=== PATIENT | male | born 1950 | race Caucasian/White ===

== ENCOUNTER 2017-08-21 20:19 | Inpatient (IN) | payer MEDICARE, MEDICAID ==
[2017-08-21 21:15] VITALS: BP 104/68
[2017-08-22] MEDS ORDERED: Maalox 30 mL Cup PO PRN (00:27)
[2017-08-22] MEDS ORDERED: Nicotine 14 mg/24 hr Tdm TD PRN (00:27)
[2017-08-22] MEDS ORDERED: Non-Formulary Item 1 EA (Albuterol Sulfate [Ventolin Hfa] 2 PUFF) IH PRN (05:52)
[2017-08-22] MEDS: INSULIN ASPART SLIDING SCALE 100 UNITS/ML UNIT SUBQ SCH ×3 (07:04→21:25)
[2017-08-22] MEDS ORDERED: Non-Formulary Item 1 EA (Fluticasone/Salmeterol [Advair 250-50 Diskus] 1 PUFF) INH SCH (09:00)
[2017-08-22] MEDS ORDERED: Aspirin 81mg Chewable Tab PO SCH (09:00)
[2017-08-22] MEDS ORDERED: TIOTROPIUM BROMIDE INH SCH (09:00)
[2017-08-22] MEDS ORDERED: NIFEdipine 30 mg ER Tab PO SCH (09:00)
[2017-08-22] MEDS: Albuterol Nebulizer 2.5mg/3mL HHN PRN ×2 (15:29→19:44)
[2017-08-22] MEDS: Hydrocodone/APAP 5mg/325mg Tab PO PRN (16:26)
[2017-08-22] MEDS: Aspirin 81mg Chewable Tab PO SCH (16:33)
[2017-08-22] MEDS ORDERED: INSULIN ASPART SLIDING SCALE 100 UNITS/ML UNIT SUBQ SCH (18:00)
[2017-08-23] MEDS: INSULIN ASPART SLIDING SCALE 100 UNITS/ML UNIT SUBQ SCH ×3 (07:03→21:29)
[2017-08-23] MEDS: Aspirin 81mg Chewable Tab PO SCH (08:31)
[2017-08-23 08:53] LABS: % BASOPHILS 0.2 % (0.0-2.0); % EOSINOPHILS 0.4 % (0.0-5.0); % NEUTROPHILS 83.4 % (40.0-80.0); HEMATOCRIT 41.4 % (41.0-60); HEMOGLOBIN 13.7 gm/dL (12-16); LYMPHOCYTE ABSOLUTE 0.9 Th/cmm (1.5-3.0); MEAN CELL VOLUME 90.1 fl (80-99); MEAN CORPUSCULAR HEMOGLOBIN 29.7 pg (27.0-31.0); MEAN PLATELET VOLUME 7.7 fl; MONOCYTE ABSOLUTE 0.9 Th/cmm (0.3-1.0); PLATELET COUNT 260 Th/cmm (150-400); RED BLOOD COUNT 4.59 Mil/cmm (3.80-5.80); RED CELL DISTRIBUTION WIDTH 16.7 % (11.5-20.0); WHITE BLOOD COUNT 10.8 Th/cmm (4.8-10.8)
[2017-08-23 09:10] LABS: ANION GAP 7.6 (7.0-16.0); BUN - UREA NITROGEN 37 mg/dL (7-25); CALCIUM SERUM 9.3 mg/dL (8.6-10.3); CARBON DIOXIDE 34.7 mEq/L (21.0-31.0); CHLORIDE 103 mEq/L (98-107); CREATININE - SERUM 1.2 mg/dL (0.7-1.3); GFR AFRICAN-AMERICAN > 60.0 ml/min (>90); GFR NON AFRICAN-AMERICAN > 60.0 ml/min; GLUCOSE 176 mg/dL (70-105); POTASSIUM SERUM 4.3 mEq/L (3.5-5.1); SODIUM SERUM 141 mEq/L (136-145)
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
[2017-08-23] MEDS: Albuterol Nebulizer 2.5mg/3mL HHN PRN ×2 (09:57→14:14)
[2017-08-23] MEDS: Hydrocodone/APAP 5mg/325mg Tab PO PRN ×2 (13:16→21:05)
[2017-08-24] MEDS: Albuterol Nebulizer 2.5mg/3mL HHN PRN ×3 (01:21→17:53)
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
[2017-08-24] MEDS: INSULIN ASPART SLIDING SCALE 100 UNITS/ML UNIT SUBQ SCH ×4 (06:51→20:41)
--- NOTE | 2017-08-24 07:26 | General Progress Note ---
Subjective - Review of Systems Service Date: 08/24/17 Subjective: Pt seen and eval. Has sig edema in LE, in spite of the lasix. Very sig amount of psychosis. Trying to get out of bed. No n,v,d or cp. No fevers or chills. Has LE pain due to edema. Objective - Results Result Diagrams: 08/23/17 08:35 08/23/17 08:35 Recent Labs: Laboratory Last Values WBC 10.8 Th/cmm (4.8-10.8) 08/23/17 08:35 RBC 4.59 Mil/cmm (3.80-5.80) 08/23/17 08:35 Hgb 13.7 gm/dL (12-16) 08/23/17 08:35 Hct 41.4 % (41.0-60) 08/23/17 08:35 MCV 90.1 fl (80-99) 08/23/17 08:35 MCH 29.7 pg (27.0-31.0) 08/23/17 08:35 MCHC Differential 33.0 pg (28.0-36.0) 08/23/17 08:35 RDW 16.7 % (11.5-20.0) 08/23/17 08:35 Plt Count 260 Th/cmm (150-400) 08/23/17 08:35 MPV 7.7 fl 08/23/17 08:35 Neutrophils % 83.4 % (40.0-80.0) H 08/23/17 08:35 Lymphocytes % 8.0 % (20.0-50.0) L 08/23/17 08:35 Monocytes % 8.0 % (2.0-10.0) 08/23/17 08:35 Eosinophils % 0.4 % (0.0-5.0) 08/23/17 08:35 Basophils % 0.2 % (0.0-2.0) 08/23/17 08:35 Sodium 141 mEq/L (136-145) 08/23/17 08:35 Potassium 4.3 mEq/L (3.5-5.1) 08/23/17 08:35 Chloride 103 mEq/L (98-107) 08/23/17 08:35 Carbon Dioxide 34.7 mEq/L (21.0-31.0) H 08/23/17 08:35 Anion Gap 7.6 (7.0-16.0) 08/23/17 08:35 BUN 37 mg/dL (7-25) H 08/23/17 08:35 Creatinine 1.2 mg/dL (0.7-1.3) 08/23/17 08:35 Est GFR ( Amer) > 60.0 ml/min (>90) 08/23/17 08:35 Est GFR (Non-Af Amer) > 60.0 ml/min 08/23/17 08:35 BUN/Creatinine Ratio 30.8 08/23/17 08:35 Glucose 176 mg/dL (70-105) H 08/23/17 08:35 POC Glucose 114 MG/DL (70 - 105) H 08/24/17 06:46 Hemoglobin A1c % 7.0 % (4.0-6.0) H 08/22/17 07:50 Calcium 9.3 mg/dL (8.6-10.3) 08/23/17 08:35 - Physical Exam Vitals and I&O: Vital Signs Temp 97.8 F 08/24/17 06:43 Pulse 80 08/24/17 06:43 Resp 20 08/24/17 06:43 BP 132/84 08/24/17 06:43 Pulse Ox 98 08/24/17 06:43 Intake & Output 08/23/17 08/24/17 08/24/17 18:59 06:59 18:59 Intake Total 1200 240 Balance 1200 240 Intake: Oral 1200 240 Other: # Voids 3 4 # Bowel Movements 1 0 Active Medications: Current Medications Acetaminophen (Tylenol) 650 mg PO Q4HR PRN PRN Reason: Mild Pain / Temp above 100 Stop: 10/20/17 20:40 Acetaminophen/Hydrocodone Bitart ([place] 5mg/325mg) 1 tab PO Q6HR PRN PRN Reason: pain Stop: 10/21/17 00:24 Last Admin: 08/23/17 21:05 Dose: 1 tab Al Hydrox/Mg Hydrox/Simethicone (Maalox) 30 ml PO Q8HR PRN PRN Reason: reflux Last Admin: 08/22/17 16:26 Dose: 30 ml Albuterol Sulfate (Albuterol 2.5mg/3ml Neb Ud) 2.5 mg HHN Q4HRT PRN PRN Reason: Shortness of Breath Stop: 10/21/17 14:15 Last Admin: 08/24/17 01:21 Dose: 2.5 mg Aspirin (Aspirin Chewable) 81 mg PO DAILY [facility] Stop: 10/21/17 08:59 Last Admin: 08/23/17 08:31 Dose: 81 mg Carvedilol (Coreg) 12.5 mg PO BID [facility] Stop: 10/21/17 08:59 Last Admin: 08/23/17 08:27 Dose: 12.5 mg Famotidine (Pepcid) 20 mg PO Q12HR PRN PRN Reason: GERD Stop: 10/21/17 00:24 Furosemide (Lasix) 40 mg PO DAILY [facility] Stop: 10/21/17 08:59 Last Admin: 08/23/17 08:29 Dose: 40 mg Hydralazine HCl (Apresoline) 10 mg PO QID PRN PRN Reason: for SBP >160 Stop: 10/21/17 00:24 Last Admin: 08/23/17 05:56 Dose: 10 mg Insulin Aspart (Novolog Insulin Sliding Scale) 0 units SUBQ ACHS ALEJANDRA PRN Reason: Protocol Stop: 10/21/17 07:29 Last Admin: 08/24/17 06:51 Dose: Not Given Lisinopril (Zestril) 2.5 mg PO DAILY [facility] Stop: 10/21/17 08:59 Last Admin: 08/23/17 08:29 Dose: 2.5 mg Loperamide HCl (Imodium) 2 mg PO Q4HR PRN PRN Reason: Diarrhea Stop: 10/21/17 00:26 Lorazepam (Ativan) 0.5 mg PO Q4HR PRN; Protocol PRN Reason: Anxiety Stop: 09/20/17 20:40 Last Admin: 08/23/17 23:04 Dose: 0.5 mg Metformin HCl (Glucophage) 500 mg PO BIDWM [facility] Stop: 10/21/17 07:59 Last Admin: 08/23/17 08:30 Dose: 500 mg Methocarbamol (Robaxin) 750 mg PO Q12HR PRN PRN Reason: muscle spasms Nicotine (Nicotine Transdermal System) 14 mg TD DAILY PRN PRN Reason: nicotine withdrawal symptoms Stop: 10/21/17 00:26 Olanzapine (Zyprexa) 5 mg PO HS ALEJANDRA PRN Reason: Protocol Stop: 10/21/17 20:59 Last Admin: 08/23/17 20:33 Dose: 5 mg Zolpidem Tartrate (Ambien) 5 mg PO HS PRN PRN Reason: Insomnia Stop: 10/20/17 20:40 Last Admin: 08/23/17 20:33 Dose: 5 mg General: Mild distress HEENT: Atraumatic, PERRLA Neck: Supple, JVD Cardiovascular: Regular rate, Normal S1, Normal S2 Lungs: Other (Has some congestion) Abdomen: Bowel sounds Assessment/Plan - Assessment Assessment: BL LE edema Unsteady gait DM Ordered cxr, BNP level and chem 7 as pt's edema is worse. FU on labs mentioned above. Elevate legs. Continue fsbs and riss. limit salt intake.
[2017-08-24] MEDS: Hydrocodone/APAP 5mg/325mg Tab PO PRN ×2 (08:29→16:13)
[2017-08-24] MEDS: Aspirin 81mg Chewable Tab PO SCH (08:30)
[2017-08-24 08:47] LABS: % BASOPHILS 0.8 % (0.0-2.0); % EOSINOPHILS 0.2 % (0.0-5.0); % LYMPHOCYTES 7.1 % (20.0-50.0); % MONOCYTES 5.9 % (2.0-10.0); BASOPHILE ABSOLUTE 0.1 Th/cumm (0-0.2); HEMOGLOBIN 14.8 gm/dL (12-16); MEAN CELL VOLUME 91.1 fl (80-99); MEAN CORPUSCULAR HEMOGLOBIN 29.4 pg (27.0-31.0); MEAN CORPUSCULAR HGB CONC 32.3 pg (28.0-36.0); MEAN PLATELET VOLUME 7.8 fl; MONOCYTE ABSOLUTE 0.8 Th/cmm (0.3-1.0); NEUTROPHILE ABSOLUTE 11.7 Th/cmm (1.8-8.0); PLATELET COUNT 262 Th/cmm (150-400); RED BLOOD COUNT 5.03 Mil/cmm (3.80-5.80); RED CELL DISTRIBUTION WIDTH 17.1 % (11.5-20.0)
[2017-08-24 08:57] LABS: WHITE BLOOD COUNT 13.6 Th/cmm (4.8-10.8)
[2017-08-24 08:58] LABS: HEMATOCRIT 45.8 % (41.0-60)
[2017-08-24 09:03] LABS: ANION GAP 10.5 (7.0-16.0); BUN - UREA NITROGEN 36 mg/dL (7-25); CALCIUM SERUM 9.4 mg/dL (8.6-10.3); CARBON DIOXIDE 32.4 mEq/L (21.0-31.0); CHLORIDE 100 mEq/L (98-107); CREATININE - SERUM 1.1 mg/dL (0.7-1.3); GFR AFRICAN-AMERICAN > 60.0 ml/min (>90); GFR NON AFRICAN-AMERICAN > 60.0 ml/min; GLUCOSE 209 mg/dL (70-105); POTASSIUM SERUM 3.9 mEq/L (3.5-5.1); SODIUM SERUM 139 mEq/L (136-145)
[2017-08-24] MEDS ORDERED: Haloperidol Lactate 5 mg/mL 1mL Vial IM ONE (11:31)
--- NOTE | 2017-08-25 04:39 | Progress Notes ---
DATE: 08/24/2017 The patient is currently in the hospital, upset, angry on a hold, very combative, needs medications, more psychotic at nighttime. The patient nonsensical, gets aggressive with ongoing psychotic agitation. The patient is sleeping this morning, very tired because he was not sleeping much last night. Staff asking for medication adjustments. ASSESSMENT: The patient remains symptomatic, still psychotic, still with ongoing psychotic agitation, aggressive behaviors, poor impulse control. PLAN: We will continue to monitor. Increase Zyprexa today. We will also add Depakote dosing. JOB# [id number]
[2017-08-25 07:07] LABS: % EOSINOPHILS 0.5 % (0.0-5.0); % LYMPHOCYTES 8.5 % (20.0-50.0); % MONOCYTES 8.8 % (2.0-10.0); % NEUTROPHILS 82.2 % (40.0-80.0); EOSINOPHILE ABSOLUTE 0.1 Th/cmm (0.1-0.4); HEMATOCRIT 46.3 % (41.0-60); LYMPHOCYTE ABSOLUTE 1.1 Th/cmm (1.5-3.0); MEAN CELL VOLUME 90.9 fl (80-99); MEAN CORPUSCULAR HEMOGLOBIN 29.4 pg (27.0-31.0); MEAN CORPUSCULAR HGB CONC 32.3 pg (28.0-36.0); MEAN PLATELET VOLUME 7.7 fl; MONOCYTE ABSOLUTE 1.1 Th/cmm (0.3-1.0); NEUTROPHILE ABSOLUTE 10.6 Th/cmm (1.8-8.0); PLATELET COUNT 261 Th/cmm (150-400); RED CELL DISTRIBUTION WIDTH 16.5 % (11.5-20.0)
[2017-08-25 07:08] LABS: WHITE BLOOD COUNT 12.9 Th/cmm (4.8-10.8)
[2017-08-25 07:29] LABS: ANION GAP 10.7 (7.0-16.0); BUN - UREA NITROGEN 39 mg/dL (7-25); CALCIUM SERUM 9.3 mg/dL (8.6-10.3); CARBON DIOXIDE 32.5 mEq/L (21.0-31.0); CHLORIDE 102 mEq/L (98-107); CREATININE - SERUM 1.2 mg/dL (0.7-1.3); GFR AFRICAN-AMERICAN > 60.0 ml/min (>90); GFR NON AFRICAN-AMERICAN > 60.0 ml/min; GLUCOSE 135 mg/dL (70-105); POTASSIUM SERUM 4.2 mEq/L (3.5-5.1); SODIUM SERUM 141 mEq/L (136-145)
[2017-08-25] MEDS: INSULIN ASPART SLIDING SCALE 100 UNITS/ML UNIT SUBQ SCH ×4 (08:00→20:28)
[2017-08-25] MEDS: Aspirin 81mg Chewable Tab PO SCH (09:08)
--- NOTE | 2017-08-25 10:20 | General Progress Note ---
Subjective - Review of Systems Service Date: 08/25/17 Subjective: Pt seen and eval. Has sig edema in LE. CXR still pending. Labs reviewed. BNP high. No sob at rest. Objective - Results Result Diagrams: 08/25/17 06:57 08/25/17 06:57 Recent Labs: Laboratory Last Values WBC 12.9 Th/cmm (4.8-10.8) H 08/25/17 06:57 RBC 5.10 Mil/cmm (3.80-5.80) 08/25/17 06:57 Hgb 15.0 gm/dL (12-16) 08/25/17 06:57 Hct 46.3 % (41.0-60) 08/25/17 06:57 MCV 90.9 fl (80-99) 08/25/17 06:57 MCH 29.4 pg (27.0-31.0) 08/25/17 06:57 MCHC Differential 32.3 pg (28.0-36.0) 08/25/17 06:57 RDW 16.5 % (11.5-20.0) 08/25/17 06:57 Plt Count 261 Th/cmm (150-400) 08/25/17 06:57 MPV 7.7 fl 08/25/17 06:57 Neutrophils % 82.2 % (40.0-80.0) H 08/25/17 06:57 Lymphocytes % 8.5 % (20.0-50.0) L 08/25/17 06:57 Monocytes % 8.8 % (2.0-10.0) 08/25/17 06:57 Eosinophils % 0.5 % (0.0-5.0) 08/25/17 06:57 Basophils % 0.0 % (0.0-2.0) 08/25/17 06:57 Sodium 141 mEq/L (136-145) 08/25/17 06:57 Potassium 4.2 mEq/L (3.5-5.1) 08/25/17 06:57 Chloride 102 mEq/L (98-107) 08/25/17 06:57 Carbon Dioxide 32.5 mEq/L (21.0-31.0) H 08/25/17 06:57 Anion Gap 10.7 (7.0-16.0) 08/25/17 06:57 BUN 39 mg/dL (7-25) H 08/25/17 06:57 Creatinine 1.2 mg/dL (0.7-1.3) 08/25/17 06:57 Est GFR ( Amer) > 60.0 ml/min (>90) 08/25/17 06:57 Est GFR (Non-Af Amer) > 60.0 ml/min 08/25/17 06:57 BUN/Creatinine Ratio 32.5 08/25/17 06:57 Glucose 135 mg/dL (70-105) H 08/25/17 06:57 POC Glucose 147 MG/DL (70 - 105) H 08/24/17 11:56 Hemoglobin A1c % 7.0 % (4.0-6.0) H 08/22/17 07:50 Calcium 9.3 mg/dL (8.6-10.3) 08/25/17 06:57 B-Natriuretic Peptide 1410.0 pg/mL (5.0-100.0) H 08/24/17 08:20 - Physical Exam Vitals and I&O: Vital Signs Temp 98.4 F 08/25/17 06:55 Pulse 96 08/25/17 09:07 Resp 18 08/25/17 06:55 BP 132/84 08/25/17 09:08 Pulse Ox 98 08/25/17 06:55 Intake & Output 08/24/17 08/25/17 08/25/17 18:59 06:59 18:59 Intake Total 1200 120 Balance 1200 120 Intake: Oral 1200 120 Other: # Voids 4 3 # Bowel Movements 1 Active Medications: Current Medications Acetaminophen (Tylenol) 650 mg PO Q4HR PRN PRN Reason: Mild Pain / Temp above 100 Stop: 10/20/17 20:40 Acetaminophen/Hydrocodone Bitart ([place] 5mg/325mg) 1 tab PO Q6HR PRN PRN Reason: pain Stop: 10/21/17 00:24 Last Admin: 08/24/17 16:13 Dose: 1 tab Al Hydrox/Mg Hydrox/Simethicone (Maalox) 30 ml PO Q8HR PRN PRN Reason: reflux Last Admin: 08/22/17 16:26 Dose: 30 ml Albuterol Sulfate (Albuterol 2.5mg/3ml Neb Ud) 2.5 mg HHN Q4HRT PRN PRN Reason: Shortness of Breath Stop: 10/21/17 14:15 Last Admin: 08/24/17 17:53 Dose: 2.5 mg Aspirin (Aspirin Chewable) 81 mg PO DAILY [facility] Stop: 10/21/17 08:59 Last Admin: 08/25/17 09:08 Dose: 81 mg Carvedilol (Coreg) 12.5 mg PO BID [facility] Stop: 10/21/17 08:59 Last Admin: 08/25/17 09:06 Dose: 12.5 mg Divalproex Sodium (Depakote Dr) 250 mg PO BID ALEJANDRA PRN Reason: Protocol Stop: 10/23/17 16:59 Last Admin: 08/24/17 18:32 Dose: Not Given Famotidine (Pepcid) 20 mg PO Q12HR PRN PRN Reason: GERD Stop: 10/21/17 00:24 Furosemide (Lasix) 40 mg PO DAILY [facility] Stop: 10/21/17 08:59 Last Admin: 08/25/17 09:08 Dose: 40 mg Furosemide (Lasix) 40 mg PO DAILY [facility] Stop: 10/24/17 10:14 Hydralazine HCl (Apresoline) 10 mg PO QID PRN PRN Reason: for SBP >160 Stop: 10/21/17 00:24 Last Admin: 08/23/17 05:56 Dose: 10 mg Insulin Aspart (Novolog Insulin Sliding Scale) 0 units SUBQ ACHS ALEJANDRA PRN Reason: Protocol Stop: 10/21/17 07:29 Last Admin: 08/25/17 08:00 Dose: Not Given Lisinopril (Zestril) 2.5 mg PO DAILY [facility] Stop: 10/21/17 08:59 Last Admin: 08/25/17 09:07 Dose: 2.5 mg Loperamide HCl (Imodium) 2 mg PO Q4HR PRN PRN Reason: Diarrhea Stop: 10/21/17 00:26 Lorazepam (Ativan) 0.5 mg PO Q4HR PRN; Protocol PRN Reason: Anxiety Stop: 09/20/17 20:40 Last Admin: 08/24/17 20:59 Dose: 0.5 mg Metformin HCl (Glucophage) 500 mg PO BIDWM [facility] Stop: 10/21/17 07:59 Last Admin: 08/25/17 09:06 Dose: 500 mg Methocarbamol (Robaxin) 750 mg PO Q12HR PRN PRN Reason: muscle spasms Nicotine (Nicotine Transdermal System) 14 mg TD DAILY PRN PRN Reason: nicotine withdrawal symptoms Stop: 10/21/17 00:26 Olanzapine (Zyprexa) 10 mg PO BID ALEJANDRA PRN Reason: Protocol Stop: 10/24/17 08:59 Last Admin: 08/25/17 09:06 Dose: 10 mg Potassium Chloride (Klor-Con) 10 meq PO DAILY ALEJANDRA Stop: 10/24/17 10:29 Trazodone HCl (Desyrel) 100 mg PO HS ALEJANDRA PRN Reason: Protocol Stop: 10/24/17 20:59 Zolpidem Tartrate (Ambien) 5 mg PO HS PRN PRN Reason: Insomnia Stop: 10/20/17 20:40 Last Admin: 08/23/17 20:33 Dose: 5 mg General: No acute distress HEENT: Atraumatic, PERRLA Neck: Supple, JVD Cardiovascular: Regular rate, Normal S1, Normal S2 Lungs: Other (Has some congestion) Abdomen: Bowel sounds, Soft Assessment/Plan - Assessment Assessment: A/C S/D HF CHF with exac Started lasix and kcl. CXR still pending. Dr. Vicente consulted for cardio. Elevate legs. Low salt diet. Continue fsbs and riss.
--- NOTE | 2017-08-25 10:50 | Diagnostic Imaging Report ---
CHEST X-RAY: AP view INDICATION: CHF COMPARISON: None FINDINGS: Findings of CHF are noted with small bilateral effusions. There is elevation of the right hemidiaphragm. Cardiomegaly is noted. Degenerative changes of the spine are noted. IMPRESSION: CHF and small bilateral effusions. Pneumonia of the lung bases cannot be excluded Cardiomegaly.
[2017-08-25] MEDS: Potassium Chloride 10 mEq ER Tab PO SCH (10:54)
[2017-08-25] MEDS: Hydrocodone/APAP 5mg/325mg Tab PO PRN ×2 (11:40→20:28)
[2017-08-26] MEDS: INSULIN ASPART SLIDING SCALE 100 UNITS/ML UNIT SUBQ SCH ×4 (06:51→21:37)
[2017-08-26] MEDS: Aspirin 81mg Chewable Tab PO SCH (09:28)
[2017-08-26] MEDS: Hydrocodone/APAP 5mg/325mg Tab PO PRN (09:29)
[2017-08-26] MEDS: Potassium Chloride 10 mEq ER Tab PO SCH (09:29)
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
[2017-08-26] MEDS: Albuterol Nebulizer 2.5mg/3mL HHN PRN (13:15)
--- NOTE | 2017-08-26 15:43 | Progress Notes ---
DATE: 08/25/2017 SUBJECTIVE: Chart reviewed and the patient interviewed. Also discussed the patient's condition with the staff and reviewed records and labs. The patient is extremely angry and is extremely upset at times. He also is still needs close monitoring taking his medications. He also seems to be confused and slightly more agitated in the evening time more than during the daytime. On the other hand, the patient continued to easier to redirect him and he is still easier to follow directions. Also, seems to be slightly less aggressive when he came to the hospital. ASSESSMENT: The patient is showing improvement and he seems to be less psychotic. TREATMENT PLAN: Dr. Jerome increased his Zyprexa yesterday. We will continue same dose and we will continue monitoring his behavior and his condition and working on behavioral modification. JOB# [id number]
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
[2017-08-27] MEDS: INSULIN ASPART SLIDING SCALE 100 UNITS/ML UNIT SUBQ SCH ×4 (06:33→20:56)
[2017-08-27 08:32] LABS: ANION GAP 9.9 (7.0-16.0); BUN - UREA NITROGEN 40 mg/dL (7-25); CALCIUM SERUM 9.4 mg/dL (8.6-10.3); CARBON DIOXIDE 32.9 mEq/L (21.0-31.0); CHLORIDE 101 mEq/L (98-107); CREATININE - SERUM 1.2 mg/dL (0.7-1.3); GFR AFRICAN-AMERICAN > 60.0 ml/min (>90); GFR NON AFRICAN-AMERICAN > 60.0 ml/min; GLUCOSE 95 mg/dL (70-105); POTASSIUM SERUM 3.8 mEq/L (3.5-5.1); SODIUM SERUM 140 mEq/L (136-145)
[2017-08-27 08:37] LABS: % BASOPHILS 1.1 % (0.0-2.0); % EOSINOPHILS 0.4 % (0.0-5.0); % MONOCYTES 8.7 % (2.0-10.0); % NEUTROPHILS 80.8 % (40.0-80.0); BASOPHILE ABSOLUTE 0.1 Th/cumm (0-0.2); HEMATOCRIT 45.1 % (41.0-60); HEMOGLOBIN 14.6 gm/dL (12-16); MEAN CELL VOLUME 90.3 fl (80-99); MEAN CORPUSCULAR HEMOGLOBIN 29.2 pg (27.0-31.0); MEAN CORPUSCULAR HGB CONC 32.3 pg (28.0-36.0); PLATELET COUNT 231 Th/cmm (150-400); RED BLOOD COUNT 4.99 Mil/cmm (3.80-5.80); RED CELL DISTRIBUTION WIDTH 16.4 % (11.5-20.0); WHITE BLOOD COUNT 11.1 Th/cmm (4.8-10.8)
[2017-08-27] MEDS: Aspirin 81mg Chewable Tab PO SCH (08:42)
[2017-08-27] MEDS: Potassium Chloride 10 mEq ER Tab PO SCH (08:43)
--- NOTE | 2017-08-27 09:37 | General Progress Note ---
Subjective - Review of Systems Service Date: 08/27/17 Subjective: Pt seen and eval. Has sig edema in LE. CXR done as pt finally allowed staff to perform it. Has PNA and chf on cxr. WBC elevated as well. Labs reviewed. BNP high. No sob at rest, but has sob with exertion. Objective - Results Result Diagrams: 08/27/17 08:00 08/27/17 08:00 Recent Labs: Laboratory Last Values WBC 11.1 Th/cmm (4.8-10.8) H 08/27/17 08:00 RBC 4.99 Mil/cmm (3.80-5.80) 08/27/17 08:00 Hgb 14.6 gm/dL (12-16) 08/27/17 08:00 Hct 45.1 % (41.0-60) 08/27/17 08:00 MCV 90.3 fl (80-99) 08/27/17 08:00 MCH 29.2 pg (27.0-31.0) 08/27/17 08:00 MCHC Differential 32.3 pg (28.0-36.0) 08/27/17 08:00 RDW 16.4 % (11.5-20.0) 08/27/17 08:00 Plt Count 231 Th/cmm (150-400) 08/27/17 08:00 MPV 8.0 fl 08/27/17 08:00 Neutrophils % 80.8 % (40.0-80.0) H 08/27/17 08:00 Lymphocytes % 9.0 % (20.0-50.0) L 08/27/17 08:00 Monocytes % 8.7 % (2.0-10.0) 08/27/17 08:00 Eosinophils % 0.4 % (0.0-5.0) 08/27/17 08:00 Basophils % 1.1 % (0.0-2.0) 08/27/17 08:00 Sodium 140 mEq/L (136-145) 08/27/17 08:00 Potassium 3.8 mEq/L (3.5-5.1) 08/27/17 08:00 Chloride 101 mEq/L (98-107) 08/27/17 08:00 Carbon Dioxide 32.9 mEq/L (21.0-31.0) H 08/27/17 08:00 Anion Gap 9.9 (7.0-16.0) 08/27/17 08:00 BUN 40 mg/dL (7-25) H 08/27/17 08:00 Creatinine 1.2 mg/dL (0.7-1.3) 08/27/17 08:00 Est GFR ( Amer) > 60.0 ml/min (>90) 08/27/17 08:00 Est GFR (Non-Af Amer) > 60.0 ml/min 08/27/17 08:00 BUN/Creatinine Ratio 33.3 08/27/17 08:00 Glucose 95 mg/dL (70-105) 08/27/17 08:00 POC Glucose 92 MG/DL (70 - 105) 08/27/17 06:13 Hemoglobin A1c % 7.0 % (4.0-6.0) H 08/22/17 07:50 Calcium 9.4 mg/dL (8.6-10.3) 08/27/17 08:00 B-Natriuretic Peptide 1070.0 pg/mL (5.0-100.0) H 08/27/17 08:00 - Physical Exam Vitals and I&O: Vital Signs Temp 97.6 F 08/27/17 07:01 Pulse 68 08/27/17 08:43 Resp 19 08/27/17 07:01 BP 160/90 08/27/17 08:43 Pulse Ox 98 08/27/17 07:01 Intake & Output 08/26/17 08/27/17 08/27/17 18:59 06:59 18:59 Intake Total 700 250 Output Total 2 Balance 700 248 Intake: Oral 700 250 Output: Urine 2 Other: # Bowel Movements 0 Active Medications: Current Medications Acetaminophen (Tylenol) 650 mg PO Q4HR PRN PRN Reason: Mild Pain / Temp above 100 Stop: 10/20/17 20:40 Acetaminophen/Hydrocodone Bitart ([place] 5mg/325mg) 1 tab PO Q6HR PRN PRN Reason: pain Stop: 10/21/17 00:24 Last Admin: 08/26/17 09:29 Dose: 1 tab Al Hydrox/Mg Hydrox/Simethicone (Maalox) 30 ml PO Q8HR PRN PRN Reason: reflux Last Admin: 08/22/17 16:26 Dose: 30 ml Albuterol Sulfate (Albuterol 2.5mg/3ml Neb Ud) 2.5 mg HHN Q4HRT PRN PRN Reason: Shortness of Breath Stop: 10/21/17 14:15 Last Admin: 08/26/17 13:15 Dose: 2.5 mg Aspirin (Aspirin Chewable) 81 mg PO DAILY [facility] Stop: 10/21/17 08:59 Last Admin: 08/27/17 08:42 Dose: 81 mg Carvedilol (Coreg) 12.5 mg PO BID [facility] Stop: 10/21/17 08:59 Last Admin: 08/27/17 08:38 Dose: 12.5 mg Clonazepam (Klonopin) 1 mg PO BID [facility] PRN Reason: Protocol Stop: 10/25/17 08:59 Last Admin: 08/27/17 08:42 Dose: 1 mg Divalproex Sodium (Depakote Dr) 250 mg PO BID [facility] PRN Reason: Protocol Stop: 10/23/17 16:59 Last Admin: 08/27/17 08:42 Dose: 250 mg Famotidine (Pepcid) 20 mg PO Q12HR PRN PRN Reason: GERD Stop: 10/21/17 00:24 Furosemide (Lasix) 40 mg PO DAILY [facility] Stop: 10/21/17 08:59 Last Admin: 08/27/17 08:42 Dose: 40 mg Hydralazine HCl (Apresoline) 10 mg PO QID PRN PRN Reason: for SBP >160 Stop: 10/21/17 00:24 Last Admin: 08/23/17 05:56 Dose: 10 mg Insulin Aspart (Novolog Insulin Sliding Scale) 0 units SUBQ ACHS [facility] PRN Reason: Protocol Stop: 10/21/17 07:29 Last Admin: 08/27/17 06:33 Dose: Not Given Levofloxacin (Levaquin) 500 mg PO DAILY [facility] Stop: 09/03/17 09:44 Lisinopril (Zestril) 2.5 mg PO DAILY [facility] Stop: 10/21/17 08:59 Last Admin: 08/27/17 08:43 Dose: 2.5 mg Loperamide HCl (Imodium) 2 mg PO Q4HR PRN PRN Reason: Diarrhea Stop: 10/21/17 00:26 Lorazepam (Ativan) 0.5 mg PO Q4HR PRN; Protocol PRN Reason: Anxiety Stop: 09/20/17 20:40 Last Admin: 08/26/17 21:20 Dose: 0.5 mg Metformin HCl (Glucophage) 500 mg PO BIDWM [facility] Stop: 10/21/17 07:59 Last Admin: 08/27/17 08:37 Dose: 500 mg Methocarbamol (Robaxin) 750 mg PO Q12HR PRN PRN Reason: muscle spasms Nicotine (Nicotine Transdermal System) 14 mg TD DAILY PRN PRN Reason: nicotine withdrawal symptoms Stop: 10/21/17 00:26 Olanzapine (Zyprexa) 10 mg PO HS [facility] PRN Reason: Protocol Stop: 10/26/17 20:59 Potassium Chloride (Klor-Con) 10 meq PO DAILY [facility] Stop: 10/24/17 10:29 Last Admin: 08/27/17 08:43 Dose: 10 meq Quetiapine Fumarate (Seroquel) 50 mg PO TID [facility] PRN Reason: Protocol Stop: 10/26/17 08:59 Trazodone HCl (Desyrel) 100 mg PO HS [facility] PRN Reason: Protocol Stop: 10/24/17 20:59 Last Admin: 08/26/17 21:20 Dose: 100 mg Zolpidem Tartrate (Ambien) 5 mg PO HS PRN PRN Reason: Insomnia Stop: 10/20/17 20:40 Last Admin: 08/26/17 23:25 Dose: 5 mg General: No acute distress HEENT: Atraumatic, PERRLA Neck: Supple, JVD Cardiovascular: Regular rate, Normal S1, Normal S2 Lungs: Other (Has some congestion) Abdomen: Bowel sounds, Soft Assessment/Plan - Assessment Assessment: PNA A/C S/D HF CHF with exac Pt has been on lasix. CXR shows pna and chf. Fu on chem 7 and cbc. Started levaquin on 08/27/17. Dr. Vicente consulted for cardio. Elevate legs. Low salt diet. Continue fsbs and riss. Nutritional Asmnt/Malnutr-PDOC - Dietary Evaluation Malnutrition Findings (Please click <Entered> for more info): Nutritional Asmnt/Malnutrition Start: 08/26/17 15: 35 Text: Status: Complete Freq: Document 08/26/17 15:35 [facility] (Rec: 08/26/17 15:44 [facility] [email or web address]) Nutritional Asmnt/Malnutrition Patient General Information Nutritional Screening Moderate Risk Diagnosis psychosis NOS Pertinent Medical Hx/Surgical Hx CHF, HTN, GERD, asthma, bilateral lower extremity edema, unsteady gait, psychosis, generalized weakness, DM Subjective Information Per notes, PO intake 100%. Current Diet Order/ Nutrition Support Cardiac Pertinent Medications lasix, novolog, glucophage, kcl Pertinent Labs 08/25 BUN 29, GLucose 135, POC 113-157 in last 2 days 08/22 A1c 7.0 Nutritional Hx/Data Height 1.83 m Height (Calculated Centimeters) 182.9 Current Weight (lbs) 88.451 kg Weight (Calculated Kilograms) 88.5 Weight (Calculated Grams) 17909.5 [place] Body Weight 178 % [place] Body Weight 110 Body Mass Index (BMI) 26.4 Weight Status Overweight GI Symptoms GI Symptoms None Last BM 08/25 Difficult in: None Skin Integrity/Comment: bruise Current %PO Good (75-100%) Estimated Nutritional Goals Calories/Kcals/Kg 25-30 based on IBW 81kg Kcals Calculated 0435-1358 Protein g/k-1.2 Protein Calculated 81-97 Fluid: ml 9850-5585 Nutritional Problem No current Nutrition Prob Problem N/A Malnutrition Alert Protein-Calorie Malnutrition N/A Is there a minimum of two criteria No selected? Query Text:Check all the applicable criteria. A minimum of two criteria are recommended for diagnosis of either severe or non-severe malnutrition. Intervention/Recommendation Comments 1. Continue with current diet as ordered. 2. Monitor PO intake, wt, labs and skin integrity 3. F/U as low risk in 7 days, 09/02 Expected Outcomes/Goals Expected Outcomes/Goals 1. PO intake to meet at least 75% of nutritional needs. 2. Wt stability, skin to remain intact, labs to approach WNL.
--- NOTE | 2017-08-27 12:28 | Cardiology ---
08/26/2017 M-MODE ECHOCARDIOGRAM: Mitral valve, anterior leaflet of mitral valve shows decreased excursion, EF velocity. Posterior leaflet of the mitral valve shows decreased excursion. Left ventricular posterior wall showed normal thickness, decreased excursion. Interventricular septum showed normal thickness, decreased excursion, ejection fraction 20%. Left atrium normal. Aortic root shows normal dimension, normal excursion of aortic leaflets. CONCLUSION: Cardiomyopathy, ejection fraction 20%. 2D ECHO: 2D echo on the same patient, long axis view showed normal sized left ventricle with a Long axis view shows enlarged left ventricular cavity with decreased ejection fraction. Left atrium normal. Aortic root shows normal dimension, normal excursion of aortic leaflets. Short axis view of mitral valve normal. Short axis view of aortic valve normal. Apical four chamber view shows enlarged left ventricular cavity with decreased ejection fraction. Left atrium normal. Right ventricular cavity, right atrium normal, no pericardial effusion. CONCLUSION: Cardiomyopathy, ejection fraction 20%. Doppler study shows mild mitral regurgitation, [id number] tricuspid regurgitation, right ventricular systolic pressure 35 mmHg, mild to moderate pleural effusion. [facility]# [id number]
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
[2017-08-28] MEDS: INSULIN ASPART SLIDING SCALE 100 UNITS/ML UNIT SUBQ SCH ×4 (07:02→20:23)
[2017-08-28] MEDS: Hydrocodone/APAP 5mg/325mg Tab PO PRN (08:31)
[2017-08-28] MEDS: Aspirin 81mg Chewable Tab PO SCH (08:32)
[2017-08-28] MEDS: Potassium Chloride 10 mEq ER Tab PO SCH (08:32)
[2017-08-28] MEDS: Albuterol Nebulizer 2.5mg/3mL HHN PRN (14:57)
[2017-08-29] MEDS: INSULIN ASPART SLIDING SCALE 100 UNITS/ML UNIT SUBQ SCH ×4 (07:10→20:25)
[2017-08-29] MEDS: Potassium Chloride 10 mEq ER Tab PO SCH (08:57)
[2017-08-29] MEDS: Aspirin 81mg Chewable Tab PO SCH (08:59)
[2017-08-29] MEDS: Hydrocodone/APAP 5mg/325mg Tab PO PRN (08:59)
[2017-08-29] MEDS ORDERED: Probiotic Screen MC PRN ×2 (12:30→12:45)
--- NOTE | 2017-08-30 00:28 | Progress Notes ---
DATE: 08/28/2017 The patient was seen, chart reviewed, and discussed with staff. The patient continues to be very irritable, angry, confused, intrusive and sexually inappropriate. Attempts at redirecting are generally unsuccessful as he has not required any p.r.n. medications. He has also been compliant with his medications, denying any undue side effects since recent increase. PLAN: The patient continues to be aggressive and unpredictable so that he will require Inpatient Care Center. We will monitor patient on a daily basis for response and titrate meds as needed. JOB# [id number]
--- NOTE | 2017-08-30 01:05 | Progress Notes ---
DATE: 08/29/2017 SUBJECTIVE: The patient was seen, chart reviewed, and discussed with staff. The patient continues to be very irritable, sexually inappropriate, intrusive and loud. He has, however, been compliant with his medications following unit rules with minimal redirections, denying any undue side effects. PLAN: The patient continues to be unpredictable, so that he will require inpatient care center treatment. We will monitor the patient on a daily basis for response of treatment and titrate meds as needed. JOB# [id number]
[2017-08-30] MEDS: INSULIN ASPART SLIDING SCALE 100 UNITS/ML UNIT SUBQ SCH ×4 (07:04→20:23)
[2017-08-30] MEDS ORDERED: Lactobacillus Rhamnosus GG 15 Billion CFU CAP.SPRINK PO SCH (09:00)
[2017-08-30] MEDS: Potassium Chloride 10 mEq ER Tab PO SCH (09:11)
[2017-08-30] MEDS: Aspirin 81mg Chewable Tab PO SCH (09:11)
[2017-08-30 09:33] LABS: % BASOPHILS 0.1 % (0.0-2.0); % EOSINOPHILS 1.9 % (0.0-5.0); % LYMPHOCYTES 8.4 % (20.0-50.0); % MONOCYTES 11.1 % (2.0-10.0); % NEUTROPHILS 78.5 % (40.0-80.0); EOSINOPHILE ABSOLUTE 0.2 Th/cmm (0.1-0.4); HEMATOCRIT 41.1 % (41.0-60); LYMPHOCYTE ABSOLUTE 0.8 Th/cmm (1.5-3.0); MEAN CELL VOLUME 90.9 fl (80-99); MEAN CORPUSCULAR HEMOGLOBIN 30.8 pg (27.0-31.0); MEAN CORPUSCULAR HGB CONC 33.9 pg (28.0-36.0); MEAN PLATELET VOLUME 8.3 fl; MONOCYTE ABSOLUTE 1.1 Th/cmm (0.3-1.0); NEUTROPHILE ABSOLUTE 7.8 Th/cmm (1.8-8.0); PLATELET COUNT 199 Th/cmm (150-400); RED BLOOD COUNT 4.52 Mil/cmm (3.80-5.80); RED CELL DISTRIBUTION WIDTH 16.7 % (11.5-20.0); WHITE BLOOD COUNT 9.9 Th/cmm (4.8-10.8)
[2017-08-30 10:00] LABS: ANION GAP 8.3 (7.0-16.0); BUN - UREA NITROGEN 31 mg/dL (7-25); CARBON DIOXIDE 34.9 mEq/L (21.0-31.0); CHLORIDE 101 mEq/L (98-107); CREATININE - SERUM 1.3 mg/dL (0.7-1.3); GFR AFRICAN-AMERICAN > 60.0 ml/min (>90); GFR NON AFRICAN-AMERICAN 58.7 ml/min; GLUCOSE 98 mg/dL (70-105); POTASSIUM SERUM 4.2 mEq/L (3.5-5.1); SODIUM SERUM 140 mEq/L (136-145)
[2017-08-30] MEDS: Lactobacillus Rhamnosus GG 15 Billion CFU CAP.SPRINK PO SCH (10:21)
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
[2017-08-30] MEDS: Hydrocodone/APAP 5mg/325mg Tab PO PRN (20:24)
[2017-08-31] MEDS: INSULIN ASPART SLIDING SCALE 100 UNITS/ML UNIT SUBQ SCH (07:17)
--- NOTE | 2017-08-31 08:15 | Diagnostic Imaging Report ---
CHEST X-RAY: AP view INDICATION: Pneumonia COMPARISON: 08/25/2017 FINDINGS: Mild improvement in CHF are noted. Small bilateral effusions are noted. Cardiomegaly is noted. Old left rib fractures are noted. IMPRESSION: Overall mild improvement in CHF with residual small effusions. Cardiomegaly. No focal consolidation identified.
[2017-08-31] MEDS: Potassium Chloride 10 mEq ER Tab PO SCH (08:51)
[2017-08-31] MEDS: Aspirin 81mg Chewable Tab PO SCH (08:51)
[2017-08-31] MEDS: Lactobacillus Rhamnosus GG 15 Billion CFU CAP.SPRINK PO SCH (08:51)
[2017-08-31] MEDS ORDERED: Venelex 60gm Tube TP SCH (09:00)
[2017-08-31 09:02] LABS: % EOSINOPHILS 0.3 % (0.0-5.0); % LYMPHOCYTES 3.4 % (20.0-50.0); % MONOCYTES 10.9 % (2.0-10.0); % NEUTROPHILS 85.4 % (40.0-80.0); HEMATOCRIT 39.2 % (41.0-60); HEMOGLOBIN 13.1 gm/dL (12-16); LYMPHOCYTE ABSOLUTE 0.3 Th/cmm (1.5-3.0); MEAN CELL VOLUME 89.2 fl (80-99); MEAN CORPUSCULAR HEMOGLOBIN 29.7 pg (27.0-31.0); MEAN CORPUSCULAR HGB CONC 33.3 pg (28.0-36.0); MONOCYTE ABSOLUTE 0.8 Th/cmm (0.3-1.0); NEUTROPHILE ABSOLUTE 6.4 Th/cmm (1.8-8.0); PLATELET COUNT 175 Th/cmm (150-400); RED CELL DISTRIBUTION WIDTH 16.2 % (11.5-20.0); WHITE BLOOD COUNT 7.5 Th/cmm (4.8-10.8)
--- NOTE | 2017-08-31 09:11 | General Progress Note ---
Subjective - Review of Systems Service Date: 08/31/17 Subjective: Pt seen and eval. Staff called this am as pt has been experiencing int fevers. No n,v,d or cp. Edema improved. Feels weak. Objective - Results Result Diagrams: 08/31/17 08:00 08/30/17 08:40 Recent Labs: Laboratory Last Values WBC 7.5 Th/cmm (4.8-10.8) D 08/31/17 08:00 RBC 4.40 Mil/cmm (3.80-5.80) 08/31/17 08:00 Hgb 13.1 gm/dL (12-16) 08/31/17 08:00 Hct 39.2 % (41.0-60) L 08/31/17 08:00 MCV 89.2 fl (80-99) 08/31/17 08:00 MCH 29.7 pg (27.0-31.0) 08/31/17 08:00 MCHC Differential 33.3 pg (28.0-36.0) 08/31/17 08:00 RDW 16.2 % (11.5-20.0) 08/31/17 08:00 Plt Count 175 Th/cmm (150-400) 08/31/17 08:00 MPV 8.0 fl 08/31/17 08:00 Neutrophils % 85.4 % (40.0-80.0) H 08/31/17 08:00 Lymphocytes % 3.4 % (20.0-50.0) L 08/31/17 08:00 Monocytes % 10.9 % (2.0-10.0) H 08/31/17 08:00 Eosinophils % 0.3 % (0.0-5.0) 08/31/17 08:00 Basophils % 0.0 % (0.0-2.0) 08/31/17 08:00 Sodium 140 mEq/L (136-145) 08/30/17 08:40 Potassium 4.2 mEq/L (3.5-5.1) 08/30/17 08:40 Chloride 101 mEq/L (98-107) 08/30/17 08:40 Carbon Dioxide 34.9 mEq/L (21.0-31.0) H 08/30/17 08:40 Anion Gap 8.3 (7.0-16.0) 08/30/17 08:40 BUN 31 mg/dL (7-25) H 08/30/17 08:40 Creatinine 1.3 mg/dL (0.7-1.3) 08/30/17 08:40 Est GFR ( Amer) > 60.0 ml/min (>90) 08/30/17 08:40 Est GFR (Non-Af Amer) 58.7 ml/min 08/30/17 08:40 BUN/Creatinine Ratio 23.8 08/30/17 08:40 Glucose 98 mg/dL (70-105) 08/30/17 08:40 POC Glucose 77 MG/DL (70 - 105) 08/31/17 06:07 Hemoglobin A1c % 7.0 % (4.0-6.0) H 08/22/17 07:50 Calcium 9.0 mg/dL (8.6-10.3) 08/30/17 08:40 B-Natriuretic Peptide 1070.0 pg/mL (5.0-100.0) H 08/27/17 08:00 - Physical Exam Vitals and I&O: Vital Signs Temp 99.1 F 08/30/17 22:13 Pulse 98 08/31/17 08:52 Resp 19 08/30/17 22:13 BP 132/78 08/31/17 08:52 Pulse Ox 94 08/30/17 22:13 Intake & Output 08/30/17 08/31/17 08/31/17 18:59 06:59 18:59 Intake Total 1200 120 Balance 1200 120 Intake: Oral 1200 120 Other: # Voids 3 3 # Bowel Movements 0 Active Medications: Current Medications Acetaminophen (Tylenol) 650 mg PO Q4HR PRN PRN Reason: Mild Pain / Temp above 100 Stop: 10/20/17 20:40 Last Admin: 08/31/17 06:23 Dose: 650 mg Acetaminophen/Hydrocodone Bitart ([place] 5mg/325mg) 1 tab PO Q6HR PRN PRN Reason: pain Stop: 10/21/17 00:24 Last Admin: 08/30/17 20:24 Dose: 1 tab Al Hydrox/Mg Hydrox/Simethicone (Maalox) 30 ml PO Q8HR PRN PRN Reason: reflux Last Admin: 08/22/17 16:26 Dose: 30 ml Albuterol Sulfate (Albuterol 2.5mg/3ml Neb Ud) 2.5 mg HHN Q4HRT PRN PRN Reason: Shortness of Breath Stop: 10/21/17 14:15 Last Admin: 08/28/17 14:57 Dose: 2.5 mg Aspirin (Aspirin Chewable) 81 mg PO DAILY [facility] Stop: 10/21/17 08:59 Last Admin: 08/31/17 08:51 Dose: 81 mg Carvedilol (Coreg) 12.5 mg PO BID [facility] Stop: 10/21/17 08:59 Last Admin: 08/31/17 08:51 Dose: 12.5 mg [place] Oil/Y[place]i Balsam/Trypsin (Venelex) 1 appl TP DAILY [facility] Stop: 10/30/17 08:59 Clonazepam (Klonopin) 1 mg PO BID [facility] PRN Reason: Protocol Stop: 10/25/17 08:59 Last Admin: 08/31/17 08:53 Dose: 1 mg Divalproex Sodium (Depakote Dr) 250 mg PO BID [facility] PRN Reason: Protocol Stop: 10/23/17 16:59 Last Admin: 08/31/17 08:53 Dose: 250 mg Famotidine (Pepcid) 20 mg PO Q12HR PRN PRN Reason: GERD Stop: 10/21/17 00:24 Furosemide (Lasix) 40 mg PO DAILY [facility] Stop: 10/21/17 08:59 Last Admin: 08/31/17 08:52 Dose: 40 mg Hydralazine HCl (Apresoline) 10 mg PO QID PRN PRN Reason: for SBP >160 Stop: 10/21/17 00:24 Last Admin: 08/30/17 20:57 Dose: 10 mg Insulin Aspart (Novolog Insulin Sliding Scale) 0 units SUBQ ACHS [facility] PRN Reason: Protocol Stop: 10/21/17 07:29 Last Admin: 08/31/17 07:17 Dose: Not Given Lactobacillus Rhamnosus (Culturelle 15b) 1 each PO DAILY [facility] Stop: 10/29/17 08:59 Last Admin: 08/31/17 08:51 Dose: 1 each Levofloxacin (Levaquin) 500 mg PO DAILY [facility] Stop: 09/03/17 09:44 Last Admin: 08/31/17 08:50 Dose: 500 mg Lisinopril (Zestril) 2.5 mg PO DAILY [facility] Stop: 10/21/17 08:59 Last Admin: 08/31/17 08:52 Dose: 2.5 mg Loperamide HCl (Imodium) 2 mg PO Q4HR PRN PRN Reason: Diarrhea Stop: 10/21/17 00:26 Lorazepam (Ativan) 0.5 mg PO Q4HR PRN; Protocol PRN Reason: Anxiety Stop: 09/20/17 20:40 Last Admin: 08/30/17 02:49 Dose: 0.5 mg Metformin HCl (Glucophage) 500 mg PO BIDWM [facility] Stop: 10/21/17 07:59 Last Admin: 08/31/17 08:53 Dose: 500 mg Methocarbamol (Robaxin) 750 mg PO Q12HR PRN PRN Reason: muscle spasms Miscellaneous (Probiotic Screen) 1 ea [facility] PRN PRN PRN Reason: PROTOCOL Stop: 10/28/17 12:29 Miscellaneous (Probiotic Screen) 1 ea MC PRN PRN PRN Reason: PROTOCOL Stop: 10/28/17 12:44 Nicotine (Nicotine Transdermal System) 14 mg TD DAILY PRN PRN Reason: nicotine withdrawal symptoms Stop: 10/21/17 00:26 Olanzapine (Zyprexa) 10 mg PO HS [facility] PRN Reason: Protocol Stop: 10/26/17 20:59 Last Admin: 08/30/17 20:24 Dose: 10 mg Potassium Chloride (Klor-Con) 10 meq PO DAILY [facility] Stop: 10/24/17 10:29 Last Admin: 08/31/17 08:51 Dose: 10 meq Quetiapine Fumarate (Seroquel) 50 mg PO TID [facility] PRN Reason: Protocol Stop: 10/26/17 14:59 Last Admin: 08/31/17 08:53 Dose: 50 mg Trazodone HCl (Desyrel) 100 mg PO HS [facility] PRN Reason: Protocol Stop: 10/24/17 20:59 Last Admin: 08/30/17 20:24 Dose: 100 mg Zolpidem Tartrate (Ambien) 5 mg PO HS PRN PRN Reason: Insomnia Stop: 10/20/17 20:40 Last Admin: 08/28/17 21:12 Dose: 5 mg General: No acute distress HEENT: Atraumatic, PERRLA Neck: Supple, JVD Cardiovascular: Regular rate, Normal S1, Normal S2 Lungs: Other (Has some congestion) Abdomen: Bowel sounds, Soft Assessment/Plan - Assessment Assessment: PNA A/C S/D HF CHF with exac Pt has int fevers. Add flagyl to the levaquin. FU on blood cx and UA. ] CXR repeated. Nutritional Asmnt/Malnutr-PDOC - Dietary Evaluation Malnutrition Findings (Please click <Entered> for more info): Nutritional Asmnt/Malnutrition Start: 08/26/17 15: 35 Text: Status: Complete Freq: Document 08/26/17 15:35 [facility] (Rec: 08/26/17 15:44 [facility] [email or web address]) Nutritional Asmnt/Malnutrition Patient General Information Nutritional Screening Moderate Risk Diagnosis psychosis NOS Pertinent Medical Hx/Surgical Hx CHF, HTN, GERD, asthma, bilateral lower extremity edema, unsteady gait, psychosis, generalized weakness, DM Subjective Information Per notes, PO intake 100%. Current Diet Order/ Nutrition Support Cardiac Pertinent Medications lasix, novolog, glucophage, kcl Pertinent Labs 08/25 BUN 29, GLucose 135, POC 113-157 in last 2 days 08/22 A1c 7.0 Nutritional Hx/Data Height 1.83 m Height (Calculated Centimeters) 182.9 Current Weight (lbs) 88.451 kg Weight (Calculated Kilograms) 88.5 Weight (Calculated Grams) 42297.5 [place] Body Weight 178 % [place] Body Weight 110 Body Mass Index (BMI) 26.4 Weight Status Overweight GI Symptoms GI Symptoms None Last BM 08/25 Difficult in: None Skin Integrity/Comment: bruise Current %PO Good (75-100%) Estimated Nutritional Goals Calories/Kcals/Kg 25-30 based on IBW 81kg Kcals Calculated 5995-7645 Protein g/k-1.2 Protein Calculated 81-97 Fluid: ml 3721-3614 Nutritional Problem No current Nutrition Prob Problem N/A Malnutrition Alert Protein-Calorie Malnutrition N/A Is there a minimum of two criteria No selected? Query Text:Check all the applicable criteria. A minimum of two criteria are recommended for diagnosis of either severe or non-severe malnutrition. Intervention/Recommendation Comments 1. Continue with current diet as ordered. 2. Monitor PO intake, wt, labs and skin integrity 3. F/U as low risk in 7 days, 09/02 Expected Outcomes/Goals Expected Outcomes/Goals 1. PO intake to meet at least 75% of nutritional needs. 2. Wt stability, skin to remain intact, labs to approach WNL.
[2017-08-31 09:14] LABS: ANION GAP 10.9 (7.0-16.0); BUN - UREA NITROGEN 31 mg/dL (7-25); CALCIUM SERUM 8.6 mg/dL (8.6-10.3); CARBON DIOXIDE 28.7 mEq/L (21.0-31.0); CHLORIDE 99 mEq/L (98-107); CREATININE - SERUM 1.2 mg/dL (0.7-1.3); GFR AFRICAN-AMERICAN > 60.0 ml/min (>90); GFR NON AFRICAN-AMERICAN > 60.0 ml/min; GLUCOSE 136 mg/dL (70-105); POTASSIUM SERUM 3.6 mEq/L (3.5-5.1); SODIUM SERUM 135 mEq/L (136-145)
[2017-08-31] MEDS ORDERED: Sodium Chloride 0.9% 500 ML IV ONE (09:40)
--- NOTE | 2017-09-02 20:24 | Progress Notes ---
DATE: 09/01/2017 SUBJECTIVE: Chart reviewed and the patient interviewed. Also discussed the patient's condition with the staff and reviewed records and labs. The patient is still very agitated and restless. The patient also is trying to get off bed. The patient also is difficult to follow directions because of his agitation and irritability. Otherwise, the patient is compliant with taking his medications with no side effect of medications. ASSESSMENT: The patient is still psychotic and agitated. TREATMENT PLAN: Continue current medications. Also, because of his agitation, we will continue adjusting psychotropic medications. JOB# [id number]
== END 2017-08-31 09:55 | DRG 885 ==
LOC: GERO 20:19
PROVIDERS: ADMIT Psychiatry & Neurology Psychiatry; ATTEND Psychiatry & Neurology Psychiatry
DX: F29 Unspecified psychosis not due to a substance or known physiological condition (principal); I50.43 Acute on chronic combined systolic (congestive) and diastolic (congestive) heart failure; J18.9 Pneumonia, unspecified organism; I11.0 Hypertensive heart disease with heart failure; E11.9 Type 2 diabetes mellitus without complications; G40.909 Epilepsy, unspecified, not intractable, without status epilepticus; F11.90 Opioid use, unspecified, uncomplicated; J45.909 Unspecified asthma, uncomplicated; R26.81 Unsteadiness on feet; F15.90 Other stimulant use, unspecified, uncomplicated; K21.9 Gastro-esophageal reflux disease without esophagitis; M62.838 Other muscle spasm; Z79.4 Long term (current) use of insulin
CPT/HCPCS: 36415-UA; 71010-TC; 80048-TC; 82948-90; 83036-90; 83880-TC; 85007-TC; 85025-TC; 85027-TC; 87070-90; 93005; 94760; J1200; J1630; J1815; J7051; J7613; Z7610

== ENCOUNTER 2017-08-31 09:48 | Inpatient (IN) | payer MEDICARE, MEDICAID ==
[2017-08-31] MEDS ORDERED: Sodium Chloride 0.9% 500 ML IV ONE (11:04)
[2017-08-31 12:13] VITALS: BP 80/51
[2017-08-31] MEDS ORDERED: Hydrocodone/APAP 5mg/325mg Tab PO PRN (13:32)
[2017-08-31] MEDS ORDERED: Albuterol Nebulizer 2.5mg/3mL HHN PRN (13:37)
[2017-08-31] MEDS: INSULIN ASPART SLIDING SCALE 100 UNITS/ML UNIT SUBQ SCH ×2 (16:44→21:19)
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
[2017-09-01] MEDS ORDERED: Levofloxacin 500mg/100mL 500 MG/100 ML BAG IV SCH ×2 (02:00→21:00)
--- NOTE | 2017-09-01 02:50 | Consultation ---
DATE OF CONSULTATION: 08/31/2017 HISTORY AND PHYSICAL: This 66-year-old male patient with psychosis, was recently admitted to [facility]. Following this, the patient became hypotensive, transferred to [facility] and cardiac consult requested. PAST MEDICAL HISTORY: Hypertension, GERD, asthma, psychosis, diabetes mellitus type 2, cardiomyopathy, ataxia. FAMILY HISTORY: Unremarkable. SOCIAL HISTORY: No history of smoking, alcohol abuse. ALLERGIES: None. PHYSICAL EXAMINATION: VITAL SIGNS: Blood pressure 90 systolic, pulse 100, respirations 28. HEENT: Head: Normocephalic. No lumps or bumps. Eyes: Pupils equal, reactive to light. Fundi show AV nicking, sclerae white, conjunctivae pink. NECK: Carotid 2+. Normal upstroke. JVD flat. Thyroid not palpable. Lymph nodes not palpable. CHEST: Shows increased AP diameter. No kyphosis, scoliosis. LUNGS: Bilateral bronchovesicular breath sounds. ____. ABDOMEN: Soft. Liver, spleen not palpable. No organomegaly. Bowel sounds active. NEUROLOGIC: Unremarkable. EXTREMITIES: Peripheral pulses 2+. No pedal edema. CLINICAL IMPRESSION: 1. Hypotension. 2. Congestive heart failure, systolic dysfunction, acute. 3. Hypertension. 4. Cardiomyopathy. 5. GERD. 6. Ataxia. 7. Diabetes mellitus type 2. 8. Psychosis. PLAN: The patient to continue present care and monitor ____ Levophed to the present regimen and monitor the patient closely. JOB# [id number]
[2017-09-01] MEDS: INSULIN ASPART SLIDING SCALE 100 UNITS/ML UNIT SUBQ SCH ×4 (06:58→20:57)
[2017-09-01 07:04] LABS: % BASOPHILS 0.4 % (0.0-2.0); % LYMPHOCYTES 7.1 % (20.0-50.0); % MONOCYTES 12.1 % (2.0-10.0); % NEUTROPHILS 80.4 % (40.0-80.0); HEMATOCRIT 38.3 % (41.0-60); HEMOGLOBIN 12.6 gm/dL (12-16); LYMPHOCYTE ABSOLUTE 0.5 Th/cmm (1.5-3.0); MEAN CELL VOLUME 90.1 fl (80-99); MEAN CORPUSCULAR HEMOGLOBIN 29.7 pg (27.0-31.0); MEAN CORPUSCULAR HGB CONC 32.9 pg (28.0-36.0); MEAN PLATELET VOLUME 7.9 fl; MONOCYTE ABSOLUTE 0.8 Th/cmm (0.3-1.0); NEUTROPHILE ABSOLUTE 5.6 Th/cmm (1.8-8.0); RED BLOOD COUNT 4.25 Mil/cmm (3.80-5.80); RED CELL DISTRIBUTION WIDTH 17.4 % (11.5-20.0); WHITE BLOOD COUNT 6.9 Th/cmm (4.8-10.8)
[2017-09-01 07:10] LABS: PLATELET COUNT 134 Th/cmm (150-400)
[2017-09-01 07:19] LABS: ALB/GLOB RATIO 1.6 (1.0-1.8); ALBUMIN 3.4 gm/dL (4.2-5.5); ALKALINE PHOSPHATASE 42 U/L (34-104); ANION GAP 7.9 (7.0-16.0); BILIRUBIN,TOTAL 0.9 mg/dL (0.3-1.0); BUN - UREA NITROGEN 28 mg/dL (7-25); CARBON DIOXIDE 30.8 mEq/L (21.0-31.0); CHLORIDE 101 mEq/L (98-107); CREATININE - SERUM 1.1 mg/dL (0.7-1.3); GFR AFRICAN-AMERICAN > 60.0 ml/min (>90); GFR NON AFRICAN-AMERICAN > 60.0 ml/min; GLUCOSE 107 mg/dL (70-105); POTASSIUM SERUM 3.7 mEq/L (3.5-5.1); SGOT 50 U/L (13-39); SGPT/ALT 37 U/L (7-52); SODIUM SERUM 136 mEq/L (136-145); TOTAL PROTEIN,SERUM 5.5 gm/dL (6.0-8.3)
--- NOTE | 2017-09-01 08:04 | History & Physical ---
ADMIT DATE: 08/31/2017 CHIEF COMPLAINT: Severe hypotension. HISTORY OF PRESENT ILLNESS: The patient is a 66-year-old male who was recently admitted to the Geropsych Unit. He is a patient of mine from the previous admission. The patient has significant edema in the Geropsych Unit. He was being treated for psychosis and other multiple comorbidities. Further workup revealed pneumonia along with CHF exacerbation. He was seen by Cardiology, started on Lasix and other medications. However, his blood pressure dropped significantly after I checked it yesterday was 70/30. He was subsequently transferred to the telemetry unit and given bolus of IV fluids. He was also having intractable fevers. He has been having fevers for the last 2-3 days, as high as 103 degrees. ID has been consulted. He was transferred to telemetry unit and given a bolus of IV fluids. His blood pressure improved later. He started having accelerated hypertension, which is being treated appropriately. He has been seen by Cardiology and ID as well. PAST MEDICAL HISTORY: Significant for CHF, hypertension, COPD, diabetes. SOCIAL HISTORY: Denies any alcohol, tobacco, or drug abuse. FAMILY HISTORY: Noncontributory. ALLERGIES: No known drug allergies. PAST SURGICAL HISTORY: No recent major surgeries. MEDICATIONS: All medications reviewed and reconciled. REVIEW OF SYSTEMS: GENERAL: Positive recent fatigue, decreased appetite, and worsening psychosis. HEENT: No recent head trauma or change in vision, taste, hearing, or smell. NEUROLOGIC: No recent stroke or seizures. NECK: No recent tracheal deviation. ABDOMEN: No recent pain or distension. SKIN: No recent rashes. PSYCHIATRIC: He has history of psychosis and labile mood. CARDIOVASCULAR: He has history of CHF and hypertension. ENDOCRINE: He has history of diabetes mellitus. RESPIRATORY: Positive history of recent seizure. GENITOURINARY: No recent increased urinary frequency or urgency. PHYSICAL EXAMINATION: VITAL SIGNS: Temperature is 97.9 degrees, heart rate is 103, respiration is 18, blood pressure 160/109. Currently, no pain. GENERAL: No acute distress. He is awake, but very agitated. HEENT: No acute issues. NECK: Trachea is midline. No JVD. CARDIOVASCULAR: He is in a sinus tachycardia. ABDOMEN: Nontender, nondistended. PSYCHIATRIC: He has a labile mood. EXTREMITIES: 1+ edema in lower extremities bilaterally. RESPIRATORY: Decreased breath sounds bilaterally with bilateral rales and congestion. NEUROLOGIC: No evidence of acute stroke or seizure activity. LABORATORY DATA: White count is 7.5, hemoglobin is 13.1, platelet count is 175,000. Sodium 135, potassium 3.6, chloride 99, bicarbonate 28.9, BUN 31, creatinine 1.2. Hemoglobin A1c 7. BNP now is 966, previously was 1410. Also, the previous chest x-ray did show pneumonia. ASSESSMENT: 1. Acute over chronic systolic over diastolic heart failure. 2. Accelerated hypertension. 3. Metabolic encephalopathy. 4. Chronic obstructive pulmonary disease. 5. Diabetes mellitus, out of control. 6. Aspiration pneumonia. PLAN: The patient continues to spike fevers. ID has been consulted. He is on IV vancomycin. Continue breathing treatments with albuterol nebulizer. He is on Coreg 25 mg b.i.d. and p.r.n. clonidine. He is also on Lasix 40 mg IV b.i.d. Follow up on blood cultures and UA as well. Continue Seroquel and trazodone. Dr. Merrill Vicente is the ID consult on the case and Dr. Antonio Vicente is the scanning clerk on the case. JOB# [id number]
--- NOTE | 2017-09-01 09:18 | Diagnostic Imaging Report ---
CHEST X-RAY: AP view INDICATION: Pneumonia COMPARISON: 08/31/2017 FINDINGS: Persistent mild CHF is noted with small bilateral effusions. Cardiomegaly is noted. IMPRESSION: Persistent mild CHF with small bilateral effusions. Faint infiltrate of the right lung base cannot be excluded Cardiomegaly.
[2017-09-01 09:52] LABS: URINE MICROSCOPIC INDICATED? YES; URINE SOURCE CLEAN C
[2017-09-01 10:13] LABS: URINE BILIRUBIN NEGATIVE (NEGATIVE); URINE BLOOD NEGATIVE (NEGATIVE); URINE GLUCOSE (UA) NEGATIVE (NEGATIVE); URINE KETONE NEGATIVE (NEGATIVE); URINE LEUKOCYTE ESTERASE NEGATIVE (NEGATIVE); URINE NITRATE NEGATIVE (NEGATIVE); URINE PH 5.5 (4.6 - 8.0); URINE PROTEIN TRACE mg/dL (NEGATIVE); URINE UROBILINOGEN 0.2 E.U./dL (0.2 - 1.0)
[2017-09-01 10:14] LABS: URINE CLARITY CLEAR (CLEAR); URINE COLOR YELLOW
[2017-09-01 10:15] LABS: URINE RBC 0-2 /hpf (0-5)
[2017-09-01 10:16] LABS: URINE BACTERIA FEW /hpf (NONE SEEN); URINE COARSE GRANULAR CAST 0-2 /lpf (NONE SEEN); URINE EPITHELIAL CELLS OCCASIONAL /lpf (FEW); URINE WHITE BLOOD CELL CAST 0-2 /lpf (NONE SEEN)
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
[2017-09-02 06:47] LABS: % EOSINOPHILS 0.9 % (0.0-5.0); % LYMPHOCYTES 13.7 % (20.0-50.0); % MONOCYTES 14.1 % (2.0-10.0); % NEUTROPHILS 71.3 % (40.0-80.0); EOSINOPHILE ABSOLUTE 0.1 Th/cmm (0.1-0.4); HEMATOCRIT 39.4 % (41.0-60); HEMOGLOBIN 13.1 gm/dL (12-16); LYMPHOCYTE ABSOLUTE 0.8 Th/cmm (1.5-3.0); MEAN CELL VOLUME 90.5 fl (80-99); MEAN CORPUSCULAR HEMOGLOBIN 30.1 pg (27.0-31.0); MEAN CORPUSCULAR HGB CONC 33.3 pg (28.0-36.0); MEAN PLATELET VOLUME 7.6 fl; MONOCYTE ABSOLUTE 0.8 Th/cmm (0.3-1.0); NEUTROPHILE ABSOLUTE 4.1 Th/cmm (1.8-8.0); PLATELET COUNT 122 Th/cmm (150-400); RED BLOOD COUNT 4.35 Mil/cmm (3.80-5.80); RED CELL DISTRIBUTION WIDTH 16.8 % (11.5-20.0); WHITE BLOOD COUNT 5.8 Th/cmm (4.8-10.8)
[2017-09-02] MEDS: INSULIN ASPART SLIDING SCALE 100 UNITS/ML UNIT SUBQ SCH ×3 (07:04→17:00)
[2017-09-02 07:08] LABS: ALB/GLOB RATIO 1.5 (1.0-1.8); ALBUMIN 3.2 gm/dL (4.2-5.5); ALKALINE PHOSPHATASE 37 U/L (34-104); ANION GAP 5.8 (7.0-16.0); BILIRUBIN,TOTAL 0.8 mg/dL (0.3-1.0); BUN - UREA NITROGEN 26 mg/dL (7-25); CALCIUM SERUM 8.1 mg/dL (8.6-10.3); CHLORIDE 100 mEq/L (98-107); GFR AFRICAN-AMERICAN > 60.0 ml/min (>90); GFR NON AFRICAN-AMERICAN > 60.0 ml/min; GLUCOSE 90 mg/dL (70-105); POTASSIUM SERUM 3.8 mEq/L (3.5-5.1); SGOT 48 U/L (13-39); SGPT/ALT 39 U/L (7-52); SODIUM SERUM 139 mEq/L (136-145); TOTAL PROTEIN,SERUM 5.3 gm/dL (6.0-8.3)
[2017-09-02] MEDS ORDERED: Venelex 60gm Tube TP SCH (09:00)
[2017-09-02] MEDS ORDERED: Probiotic Screen MC PRN (10:00)
[2017-09-02] MEDS ORDERED: Potassium Chloride 10 mEq ER Tab PO SCH (11:00)
--- NOTE | 2017-09-02 19:25 | Discharge Summary ---
DATE OF DISCHARGE: 09/02/2017 DATE OF ADMISSION: 08/31/2017 to the Telemetry unit. DATE OF DISCHARGE: To [facility] of the hospital 09/02/2009. CAUSE OF ADMISSION: The patient is a 66-year-old male who was recently admitted to Geropsych Unit, he is a patient of mine from previous admission. The patient had significant edema in the Geropsych Unit, he was being treated for psychosis and multiple comorbidities. Further workup revealed pneumonia with CHF exacerbation. He was seen by Cardiology, started on Lasix and other medications. However, his blood pressure dropped significantly after I checked it, it was 70/30. He was subsequently transferred to telemetry and given bolus of IV fluids. He was also having intractable fevers. He was having fevers for about 2 days as high as 103 degrees. ID was consulted. He was transferred to telemetry and given bolus IV fluids. His blood pressure did improve. Cardiology saw the patient as well. ADMITTING DIAGNOSES: 1. Acute over chronic systolic over diastolic heart failure. 2. Accelerated hypertension. 3. Metabolic encephalopathy. 4. Hypotension. 5. Chronic obstructive pulmonary disease. 6. Diabetes mellitus, out of control. 7. Aspiration pneumonia. DISCHARGE DIAGNOSES: 1. Acute over chronic systolic over diastolic heart failure. 2. Accelerated hypertension. 3. Metabolic encephalopathy. 4. Hypotension. 5. Chronic obstructive pulmonary disease. 6. Diabetes mellitus, out of control. 7. Aspiration pneumonia. SUMMARY OF HOSPITAL COURSE: The patient was spiking fevers. ID was consulted. He was placed on IV vancomycin. He has been fever free for at least 24 hours now. His blood pressure is improved. We restarted Coreg and p.r.n. clonidine. He was also started on IV Lasix. Blood cultures and UA was ordered along with chest x-ray. We continued his psych medications. Dr. Merrill Vicente is ID consulted on the case. Dr. Antonio Vicente was the band tacker on the case. PHYSICAL EXAMINATION: VITAL SIGNS: Temperature 95.5 degrees, heart rate 82, respirations 18, blood pressure 110/62. Currently in no pain. GENERAL: No acute distress, awake. HEENT: No acute issues. PSYCHIATRIC: He has labile mood with psychosis. RESPIRATORY: Decreased breath sounds bilaterally, but no rales. EXTREMITIES: 1+ edema lower extremities bilaterally. SKIN: No rashes. LABS: Latest chest x-ray shows improvement in the pneumonia. He does have mild CHF and bilateral pleural effusion. Valproic acid level is 20.6. White count is 5.8, hemoglobin is 13.1, platelet count 222,000. Sodium 139, potassium 3.8, chloride 100, bicarbonate 37, BUN 26, creatinine is 1, glucose 122. PROGNOSIS: Fair. ACTIVITY: As tolerated. DISPOSITION: He is being discharged to the [facility] side of the [facility]. CONSULTS: Dr. Merrill Vicente for ID and Dr. Antonio Vicente for Cardiology. MEDICATIONS: All medication reviewed and reconciled. He was placed on p.o. Levaquin for 5 more days. JOB# [id number]
[2017-09-03] MEDS ORDERED: Lactobacillus Rhamnosus GG 15 Billion CFU CAP.SPRINK PO SCH (09:00)
== END 2017-09-02 18:21 | DRG 177 ==
LOC: TELE 09:48
PROVIDERS: ADMIT General Practice; ATTEND General Practice
DX: J69.0 Pneumonitis due to inhalation of food and vomit (principal); I50.43 Acute on chronic combined systolic (congestive) and diastolic (congestive) heart failure; G93.41 Metabolic encephalopathy; I95.9 Hypotension, unspecified; I42.9 Cardiomyopathy, unspecified; E11.65 Type 2 diabetes mellitus with hyperglycemia; J44.9 Chronic obstructive pulmonary disease, unspecified; I11.0 Hypertensive heart disease with heart failure; N39.0 Urinary tract infection, site not specified; F29 Unspecified psychosis not due to a substance or known physiological condition; K21.9 Gastro-esophageal reflux disease without esophagitis; R27.0 Ataxia, unspecified
CPT/HCPCS: 36415-UA; 71010-TC; 80053-TC; 80164-TC; 81001-TC; 82948-90; 83735-TC; 83880-TC; 85007-TC; 85025-TC; 85027-TC; 87086-90; 93005; 94760; J1815; J1940; J1956; J2060; J3370; J7030; Z7610

== ENCOUNTER 2017-09-02 18:30 | Inpatient (IN) | payer MEDICARE, MEDICAID ==
[2017-09-02 20:34] VITALS: BP 110/63
[2017-09-02] MEDS ORDERED: Maalox 30 mL Cup PO PRN ×2 (20:35→21:37)
[2017-09-02] MEDS ORDERED: Magnesium Hydroxide (MOM) 30 mL UDC PO PRN (20:35)
--- NOTE | 2017-09-02 23:04 | Progress Notes ---
DATE: 09/02/2017 SUBJECTIVE: Chart reviewed and the patient interviewed. Also discussed the patient's condition with the staff, and I reviewed records and labs. The patient continued to be extremely agitated and restless. The patient is trying to get off bed regardless his safety. Also is unable to follow any of staff directions. He is also confused. Also, when I tried to ask him question, he is unable to answer any of my questions coherently because of his agitation and confusion. Otherwise, the patient is compliant with taking his medications. The patient also still need to be on restraints because of his agitation and restlessness. ASSESSMENT: The patient is still confused and psychotic. TREATMENT PLAN: We will continue to monitor his behavior and his condition closely. Also, we will add Seroquel in a dose of 50 mg 3 times a day and we will hold the dose if the patient is agitated. Also, we will continue to work on his poor impulse control and his agitation. JOB# [id number]
[2017-09-03] MEDS: INSULIN ASPART SLIDING SCALE 100 UNITS/ML UNIT SUBQ SCH ×4 (06:30→20:08)
[2017-09-03] MEDS: Multivitamin Tab PO SCH (09:04)
[2017-09-03] MEDS: Aspirin 81mg Chewable Tab PO SCH (09:04)
[2017-09-03] MEDS: Potassium Chloride 10 mEq ER Tab PO SCH (09:04)
[2017-09-03] MEDS: Lactobacillus Rhamnosus GG 15 Billion CFU CAP.SPRINK PO SCH (09:04)
[2017-09-03] MEDS: Hydrocodone/APAP 5mg/325mg Tab PO PRN (09:04)
[2017-09-03] MEDS: Venelex 60gm Tube TP SCH (09:05)
[2017-09-03] MEDS ORDERED: Haloperidol Lactate 5 mg/mL 1mL Vial IM ONE (17:31)
[2017-09-04] MEDS: INSULIN ASPART SLIDING SCALE 100 UNITS/ML UNIT SUBQ SCH ×4 (06:40→20:52)
[2017-09-04] MEDS: Potassium Chloride 10 mEq ER Tab PO SCH (08:10)
[2017-09-04] MEDS: Multivitamin Tab PO SCH (08:10)
[2017-09-04] MEDS: Lactobacillus Rhamnosus GG 15 Billion CFU CAP.SPRINK PO SCH (08:12)
[2017-09-04] MEDS: Aspirin 81mg Chewable Tab PO SCH (08:13)
[2017-09-04] MEDS: Hydrocodone/APAP 5mg/325mg Tab PO PRN (13:15)
[2017-09-04] MEDS: Venelex 60gm Tube TP SCH (17:32)
--- NOTE | 2017-09-04 20:33 | Psychosocial Evaluation ---
DATE OF SERVICE: 09/03/2017 INITIAL EVALUATION AND MENTAL STATUS EXAM AGE: 66. SEX: Male. PHYSICIAN: Dr. Cherry. CHIEF COMPLAINT: Agitation and confusion. HISTORY OF PRESENT ILLNESS: The patient is a 66-year-old male, who was in treatment in med/surg unit. The patient was transferred to the psych unit because the patient has been extremely irritable and has been agitated. Also, has been confused and has been delusional. The patient thinks that he is a doctor. Also, has been banging on the wall and bed rails. PAST PSYCHIATRIC HISTORY: The patient has history of psychosis and agitation. PAST MEDICAL HISTORY: At this time, the patient was medically stable in med/surg unit. SOCIAL HISTORY: No known alcohol or drug use. MENTAL STATUS EXAMINATION: The patient appears his stated age. Anxious. Irritable mood. Easily agitated and not answering most of my questions because of his paranoia and because of his agitation. The patient seems to be responding to stimuli and he is disheveled. The patient also denies any suicidal or homicidal ideations. He denied auditory or visual hallucinations, but seems to be suspicious and paranoid. Poor insight and poor judgment. ASSESSMENT: PRIMARY DIAGNOSIS: Unspecified psychosis, rule out schizoaffective disorder, bipolar type, severe, with psychotic features. TREATMENT PLAN: We will monitor the patient's behavior closely. We will continue Depakote, Seroquel, Klonopin, and trazodone. Also, we will work on behavioral modification. ESTIMATED LENGTH OF STAY: 5-7 days. THE PATIENT'S STRENGTHS AND WEAKNESSES: The patient's strength is not clear at this time. Weaknesses are his agitation and poor impulse control and his psychosis. AFTER DISCHARGE PLAN: The patient will return to the nursing homes with plans for outpatient treatment and follow up as an outpatient. CRITERIA FOR DISCHARGE: The patient will not be psychotic and will stabilize psychotropic medications and will establish outpatient treatment plans. JOB# [id number]
[2017-09-05] MEDS: INSULIN ASPART SLIDING SCALE 100 UNITS/ML UNIT SUBQ SCH ×4 (06:46→21:43)
[2017-09-05] MEDS: Aspirin 81mg Chewable Tab PO SCH (08:21)
[2017-09-05] MEDS: Potassium Chloride 10 mEq ER Tab PO SCH (08:22)
[2017-09-05] MEDS: Multivitamin Tab PO SCH (08:23)
[2017-09-05] MEDS: Lactobacillus Rhamnosus GG 15 Billion CFU CAP.SPRINK PO SCH (08:23)
--- NOTE | 2017-09-05 08:52 | Progress Notes ---
DATE: Chart reviewed and patient interviewed. Also discussed the patient's condition with the staff and reviewed records and labs. The patient was extremely agitated yesterday and he was in angry and aggressive mood. The patient also was threatening staff and others. The patient had to be given Haldol, Ativan and Benadryl emergency dose to calm him down. The patient was calmer after that, but he still has episodes of anger and irritability. Also, still having severe mood swings and needs lots of redirections. ASSESSMENT: The patient is still psychotic. TREATMENT PLAN: We will continue to monitor his behavior and his condition closely. Also, continue adjusting psychotropic medications and work on behavioral medications and continue to follow up. [facility]# [id number]
[2017-09-05] MEDS: Venelex 60gm Tube TP SCH (14:10)
[2017-09-05] MEDS: Hydrocodone/APAP 5mg/325mg Tab PO PRN (14:11)
[2017-09-05] MEDS: Albuterol Nebulizer 2.5mg/3mL HHN PRN (15:16)
--- NOTE | 2017-09-05 22:46 | Progress Notes ---
DATE: PSYCHIATRIC PROGRESS NOTE SUBJECTIVE: Chart reviewed and patient interviewed. Also discussed the patient's condition with the staff and reviewed records and labs. The patient seems to be slightly calmer today since he started to take Zyprexa, slept slightly better. Also seems that his behavior problems decreased slightly. Also, today, the patient does not complain of any abdominal pain. Also, continued to be more cooperative than yesterday. Otherwise, the patient denies any side effects of medications. ASSESSMENT: The patient is less psychotic and less agitated. TREATMENT PLAN: Continue to monitor his behavior and his condition closely. Also, continue to work on behavior of the patient and followup. JOB# [id number]
[2017-09-06] MEDS: Albuterol Nebulizer 2.5mg/3mL HHN PRN (00:09)
[2017-09-06] MEDS: INSULIN ASPART SLIDING SCALE 100 UNITS/ML UNIT SUBQ SCH ×4 (06:42→21:59)
[2017-09-06] MEDS: Aspirin 81mg Chewable Tab PO SCH (12:07)
[2017-09-06] MEDS: Venelex 60gm Tube TP SCH (12:07)
[2017-09-06] MEDS: Multivitamin Tab PO SCH (12:08)
[2017-09-06] MEDS: Lactobacillus Rhamnosus GG 15 Billion CFU CAP.SPRINK PO SCH (12:08)
[2017-09-06] MEDS: Potassium Chloride 10 mEq ER Tab PO SCH (12:08)
--- NOTE | 2017-09-07 02:19 | Progress Notes ---
DATE: 09/06/2017 PSYCHIATRIC PROGRESS NOTE Chart reviewed and patient interviewed. Also discussed the patient's condition with the staff and reviewed records and labs. The patient is still manipulative and is still having severe mood swings, but decreased behavioral problems. The patient also is trying to interact slightly more. The patient also is compliant with taking his medications, but he still has disorganized thoughts and needs redirect. The patient denies any side effects of medications. ASSESSMENT: The patient is still psychotic, but less agitated. TREATMENT PLAN: We will increase Seroquel to 100 mg 3 times a day and continue Klonopin, Depakote and trazodone. Also, we will get Depakote blood level and we will continue to follow up. JOB# [id number]
[2017-09-07] MEDS: INSULIN ASPART SLIDING SCALE 100 UNITS/ML UNIT SUBQ SCH ×4 (06:36→21:12)
[2017-09-07] MEDS: Venelex 60gm Tube TP SCH (13:20)
[2017-09-07] MEDS: Aspirin 81mg Chewable Tab PO SCH (13:20)
[2017-09-07] MEDS: Potassium Chloride 10 mEq ER Tab PO SCH (13:21)
[2017-09-07] MEDS: Lactobacillus Rhamnosus GG 15 Billion CFU CAP.SPRINK PO SCH (13:21)
[2017-09-07] MEDS: Multivitamin Tab PO SCH (13:21)
[2017-09-07] MEDS: Albuterol Nebulizer 2.5mg/3mL HHN PRN (21:04)
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
[2017-09-08] MEDS: Aspirin 81mg Chewable Tab PO SCH (08:21)
[2017-09-08] MEDS: Lactobacillus Rhamnosus GG 15 Billion CFU CAP.SPRINK PO SCH (08:21)
[2017-09-08] MEDS: Potassium Chloride 10 mEq ER Tab PO SCH (08:22)
[2017-09-08] MEDS: Multivitamin Tab PO SCH (08:25)
[2017-09-08] MEDS: INSULIN ASPART SLIDING SCALE 100 UNITS/ML UNIT SUBQ SCH ×4 (10:43→21:32)
[2017-09-08] MEDS: Venelex 60gm Tube TP SCH (10:43)
[2017-09-08] MEDS: Hydrocodone/APAP 5mg/325mg Tab PO PRN (15:18)
--- NOTE | 2017-09-09 00:36 | Progress Notes ---
DATE: 09/08/2017 SUBJECTIVE: Chart reviewed and the patient interviewed. Also discussed the patient's condition with the staff and reviewed records and labs. The patient is complaining of "overmedicated". The patient is still argumentative and is still restless and still has episodes of demanding and screaming. The patient also has mood swings and at times seems calm and cooperative and at other times is angry and agitated. The patient has been compliant with taking his medications with no side effects of medications except that the patient is complaining of being sedated. ASSESSMENT: The patient is still confused and still need placement. TREATMENT PLAN: Continue to monitor his behavior and his condition. Also, we will decrease Seroquel to 100 mg 3 times a day. Also, continue to work on behavioral modification and followup. JOB# [id number]
[2017-09-09] MEDS: Hydrocodone/APAP 5mg/325mg Tab PO PRN (00:52)
[2017-09-09] MEDS: INSULIN ASPART SLIDING SCALE 100 UNITS/ML UNIT SUBQ SCH ×4 (06:50→21:42)
[2017-09-09] MEDS: Aspirin 81mg Chewable Tab PO SCH (09:13)
[2017-09-09] MEDS: Multivitamin Tab PO SCH (09:16)
[2017-09-09] MEDS: Potassium Chloride 10 mEq ER Tab PO SCH (09:16)
[2017-09-09] MEDS: Lactobacillus Rhamnosus GG 15 Billion CFU CAP.SPRINK PO SCH (09:17)
[2017-09-09] MEDS ORDERED: Haloperidol Lactate 5 mg/mL 1mL Vial ONE (13:00)
[2017-09-09] MEDS ORDERED: Haloperidol Lactate 5 mg/mL 1mL Vial IM ONE (13:02)
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
[2017-09-10] MEDS: INSULIN ASPART SLIDING SCALE 100 UNITS/ML UNIT SUBQ SCH (08:29)
[2017-09-10] MEDS: Aspirin 81mg Chewable Tab PO SCH (08:32)
[2017-09-10] MEDS: Potassium Chloride 10 mEq ER Tab PO SCH (08:32)
[2017-09-10] MEDS: Lactobacillus Rhamnosus GG 15 Billion CFU CAP.SPRINK PO SCH (08:32)
[2017-09-10] MEDS: Multivitamin Tab PO SCH (08:33)
--- NOTE | 2017-09-10 18:52 | Discharge Summary ---
DATE OF DISCHARGE: 09/10/2017 AGE: 66. SEX: Male. PHYSICIAN: Dr. Cherry. FINAL DIAGNOSES/PRIMARY DIAGNOSES: Schizoaffective disorder, bipolar type, severe with psychotic features. REASON FOR HOSPITALIZATION: The patient was admitted to the hospital because of confusion and increased agitation. HOSPITAL COURSE: The patient continued to be extremely agitated and in irritable mood. The patient also is having grandiose delusions and talking about him being multimillionaire and having a lot of money. The patient also was restless and was in angry mood and at times was irritable with the patients. The patient was given a Depakote and he was also given Seroquel and the dose of Seroquel adjusted to a 100 mg 3 times a day. Also, because of insomnia, the patient was given trazodone 100 mg at bedtime. Gradually, the patient's affect was brighter. The patient was less irritable and less agitated. The patient also was interacting more. The patient was accepted in [place] [facility] and the patient was discharged there. Physical examination of the patient shows the patient is diabetic, but he has no major medical problems. AFTER DISCHARGE PLANS: The patient discharged from the hospital with plans for followup in [place]. EXPECTED OUTCOME AFTER DISCHARGE: Fair if the patient continues with his treatment and medications. [facility]# [id number]
--- NOTE | 2017-09-12 17:28 | Discharge Summary ---
DATE OF DISCHARGE: 09/10/2017 FINAL DIAGNOSIS: Unspecified psychosis. SECONDARY DIAGNOSIS: Methamphetamine use disorder. REASON FOR HOSPITALIZATION: The patient was admitted to the hospital from [facility] because of increased paranoia and delusion and increased behavioral issues and possible use of methamphetamine. HOSPITAL COURSE: The patient continued to be irritable and agitated. Also, continued to be confused. Also, was argumentative and he had grandiose delusions and the patient was given Depakote that was increased to 250 mg twice a day and Depakote 1 mg twice a day. Also, the patient had trouble sleeping at night and was given trazodone 100 mg at bedtime. Also, because of his anger and irritability and grandiose delusions, the patient was given Seroquel 50 mg 3 times a day. Gradually, the patient's affect was brighter. The patient was less irritable and less agitated. The patient was accepted at [facility] and the patient was discharged there. Physical exam of the patient basically showed no major medical problems and the patient had no major medical problems while in the hospital. AFTER DISCHARGE PLANS: The patient discharged from the hospital with plans for outpatient treatment and followup. EXPECTED OUTCOME AFTER DISCHARGE: Fair if the patient continues with his treatment and continued to take his psychotropic medications. [facility]# [id number]
== END 2017-09-10 12:00 | DRG 885 ==
LOC: GERO 18:30
PROVIDERS: ADMIT Psychiatry & Neurology Psychiatry; ATTEND Psychiatry & Neurology Psychiatry
DX: F25.0 Schizoaffective disorder, bipolar type (principal); E11.9 Type 2 diabetes mellitus without complications; F29 Unspecified psychosis not due to a substance or known physiological condition; G47.00 Insomnia, unspecified; F15.90 Other stimulant use, unspecified, uncomplicated
CPT/HCPCS: 36415-UA; 80164-TC; 82948-90; 90899; 94760; G0410; J1200; J1630; J1815; J2060; J7613; Z7610